=== PATIENT | female | born 2000 | race Caucasian/White ===

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

== ENCOUNTER 2018-09-10 14:59 | Outpatient (CLI) | payer OTHER ==
--- NOTE | 2018-09-10 16:13 | XRAY Report ---
Reason: FACIAL CONTUSION Procedure Date: 09/10/2018 Accession Number: [id number] / [id number] Procedure: XR - Facial Bones Complete CPT Code: FULL RESULT: EXAM: FACIAL BONES RADIOGRAPHY EXAM DATE: 09/10/2018 03:47 PM. CLINICAL HISTORY: FACIAL CONTUSION. COMPARISON: None. TECHNIQUE: 3 views. FINDINGS: Bones: Normal. No fractures or bone lesions. Temporomandibular Joints: Normal. Sinuses: Normal. No opacities or fluid levels. Other: Normal. No soft tissue swelling. IMPRESSION: Normal facial bones radiography. [facility]
== END 2018-09-10 15:00 | disposition home or self-care (01) ==
LOC: DI 14:59
PROVIDERS: ATTEND Physician Assistant Medical
DX: S00.83XA Contusion of other part of head, initial encounter (principal); S00.10XA Contusion of unspecified eyelid and periocular area, initial encounter
CPT/HCPCS: 70150

== ENCOUNTER 2020-02-01 11:00 | Outpatient (CLI) | payer OTHER | END 2020-02-01 11:01 | disposition home or self-care (01) | LOC: COV 11:00 | PROVIDERS: ATTEND Family Medicine | DX: Z20.828 Contact with and (suspected) exposure to other viral communicable diseases (principal) ==